=== PATIENT | male | born 1950 | race Caucasian/White ===

== ENCOUNTER 2023-11-10 13:52 | Emergency (ER) | payer MEDICARE, SELFPAY ==
[2023-11-10 14:03] VITALS: BP 122/81
[2023-11-10 14:35] VITALS: BMI 25.7
[2023-11-10 14:53] LABS: % Basophils 0.5 % (0-2); % Eosinophils 0.5 % (0-6); % Immature Granulocytes 0.5 % (0-0.5); % Lymphocytes 22.8 % (20.5-51.1); % Monocytes 7.5 % (1.7-9.3); % Neutrophils 68.2 % (42.2-75.2); Absolute Basophils 0.1 10^3/uL (0-0.2); Absolute Eosinophils 0.1 10^3/uL (0-0.7); Absolute Immature Granulocytes 0.1 10^3/uL (0-0.05); Absolute Lymphocytes 2.5 10^3/uL (1.2-3.4); Absolute Monocytes 0.8 10^3/uL (0.1-0.6); Absolute Neutrophils 7.5 10^3/uL (1.4-6.5); Hematocrit 40.9 % (39.0-52.0); Hemoglobin 14.6 g/dL (13.0-18.0); Mean Corp Hgb Conc. 35.7 g/dL (33.0-37.0); Mean Corpuscular Hgb 29.6 pg (27.0-31.0); Mean Corpuscular Volume 82.8 fL (80.0-94.0); Mean Platelet Volume 9.1 fL (7.4-10.4); Nucleated Red Blood Cells % 0 % (-); Platelet Count 299 10^3/uL (130-400); Red Blood Cell Count 4.94 10^6/uL (4.70-6.10); Red Cell Dist. Width 12.6 % (11.5-14.5)
[2023-11-10 15:05] LABS: ALT (SGPT) 24 U/L (0-50); AST (SGOT) 32 U/L (17-59); Albumin 4.7 g/dl (3.5-5.0); Alkaline Phosphatase 85 U/L (38-126); Blood Urea Nitrogen 14 mg/dl (9-20); Carbon Dioxide 25 mmol/L (22-30); Chloride 107 mmol/L (98-107); Estimated Creatinine Clearance 75 ml/min; Glucose 100 mg/dl (70-99); Potassium 4.5 mmol/L (3.5-5.1); Sodium 141 mmol/L (135-145); Total Bilirubin 0.8 mg/dl (0.2-1.3); Total Protein 7.6 g/dl (6.3-8.2); eGFR > 60.00
[2023-11-10] MEDS: ZOFRAN 8 MG IV (15:38)
[2023-11-10] MEDS: NSS 1000 IV (15:39)
[2023-11-10] MEDS: PEPCID 20 MG IV (15:39)
[2023-11-10 16:00] LABS: Urine Albumin Negative (Neg - Trace); Urine Bilirubin Negative (Negative); Urine Character Clear (Clear); Urine Color Yellow; Urine Glucose Negative (Negative); Urine Ketone 1+ (Negative); Urine Leukocyte Negative (Negative); Urine Nitrite Negative (Negative); Urine Occult Blood Negative (Negative); Urine Urobilinogen Negative (Neg - 1+)
[2023-11-10 16:07] VITALS: BP 130/60
[2023-11-10] MEDS: ATIVAN 1 MG IV (16:28)
[2023-11-10] MEDS: PHENERGAN 51 MG IV (17:19)
[2023-11-10 19:18] VITALS: BP 135/68
--- NOTE | 2023-11-10 19:18 | ED.GENMED ---
History of Present Illness
General
Chief Complaint: Abdominal Symptoms
Source: patient
Exam Limitations: none
Time Seen by Provider: 11/10/23 15:04
Nursing documentation reviewed up to this point in time: agreed with
History of Present Illness
History of Present Illness:
73-year-old male with past medical history of hypertension hyperlipidemia presenting to the emergency department today with concerns of nausea watery diarrhea over the past few days has had a panic attack over the past 2 days. Patient tried Zofran
at home without relief. Denies any chest pain shortness of breath fevers denies any blood in the stool diarrhea has been slowing no significant vomiting over the past few days
Past History
Past History
ED Past Medical History: HTN and Hypercholesterolemia
ED Past Surgical History: Cholecystectomy and Orthopedic
Social History
Tobacco: Non-smoker
Alcohol: None
Personal:
Living: with family
Family History
Family History: Diabetes
Review of Systems
Review of Systems
Allergies reviewed?: Yes
All Other Systems: ROS reviewed and negative except as documented in HPI and ROS
Phy Exam
Physical Exam
Physical Exam:
GENERAL: Alert , in no apparent distress
EYE: pupils equal and reactive
NECK: Supple, no significant adenopathy.
ENT: o/p clr, mmm.
CARDIAC: Regular rate and rhythm .
LUNGS: Clear breath sounds bilaterally, no acute respiratory distress, no wheezes/rales/rhonchi
ABDOMEN: Soft, without focal tenderness, no r/g, no cvat
NEUROLOGICAL: Alert and oriented, no focal neuro deficits
SKIN: Warm and dry, skin intact.
MUSCULOSKELETAL: No edema, well perfused.
PSYCH: Normal and appropriate interaction.
Course
Orders/Labs/Results
Orders:
Orders
11/10/23 14:09
Electrocardiogram (*1) Urgent
Reason for Study: Fatigue / Weakness
EKG- Treatment ONCE
11/10/23 14:44
CMP [Comprehensive Metabolic Panel] Urgent
Complete Blood Count/With Diff Urgent
11/10/23 15:32
0.9% Sodium Chloride 1000 ml [Nss] 1,000 ml IV BOLUS
Famotidine [Pepcid] 20 mg IV NOW STA
Ondansetron Injectable [Zofran] 8 mg IV NOW STA
11/10/23 15:54
Urinalysis Reflex To Culture Urgent
Date Specimen was Collected: 11/10/23
Time Specimen was Collected: 15:52
11/10/23 16:25
Lorazepam [Ativan] 1 mg IV NOW STA
11/10/23 17:09
Promethazine [Phenergan] 25 mg 0.9% Sodium Chloride 50 ml [Nss] 50 ml IV NOW
Abnormal Lab Results
11/10/23 11/10/23
14:44 15:54
WBC 11.0 H 10^3/uL
(4.8-10.8)
Abs Immat Gran (auto) 0.1 H 10^3/uL
(0-0.05)
Absolute Neuts (auto) 7.5 H 10^3/uL
(1.4-6.5)
Absolute Monos (auto) 0.8 H 10^3/uL
(0.1-0.6)
Glucose 100 H mg/dl
(70-99)
Urine Ketones 1+ A
(Negative)
11/10/23 14:44
11/10/23 14:44
Vital Signs
Initial and Last Documented VS:
Initial Vital Signs
Temp Pulse Resp BP Pulse Ox
99.1 F 81 18 122/81 96
11/10/23 14:03 11/10/23 14:03 11/10/23 14:03 11/10/23 14:03 11/10/23 14:03
Last Documented Vital Signs
Temp Pulse Resp BP Pulse Ox
99.1 F 78 18 135/68 99
11/10/23 14:03 11/10/23 19:18 11/10/23 19:18 11/10/23 19:18 11/10/23 19:18
MDM/Problems Addressed
MDM/Problems Addressed:
73-year-old male presenting to the emergency department today with concerns of watery diarrhea and nausea over the past few days also is felt very anxious. Upon arrival vital signs are normal patient with a completely soft benign abdomen very
unlikely be surgical pathology considering no abdominal pain normal vital signs labs with very slight elevated white count otherwise labs unremarkable urinalysis normal. Patient was given multiple medications here and did have significant
improvement of symptoms. Still no ongoing abdominal pain stable for outpatient management. Return precautions given.
*Critical Care Note
Total Time (30-74mins, 75-104mins- exclusive of procedures): Not Applicable
ED Attending Note
-
Portions of this chart may have been created with voice recognition software.� Occasional wrong word or��sound alike� substitutions may have occurred due to the inherent limitations of voice recognition software.
Discharge Plan
Departure
Patient Disposition: Home (Routine Discharge)
Date of Disposition: 11/10/23
Time of Disposition: 19:18
Patient with high blood pressure during this ER visit?: No
Condition: Good
Covid-19: Not Applicable
Discharge Problem:
Diarrhea
Instructions: Diarrhea in teens and adults
Prescriptions:
New
promethazine 25 mg tablet
25 mg PO Q4H PRN (Reason: nausea and vomiting) Qty: 14 0RF
No Action
oxycodone-acetaminophen [Percocet] 1 EACH tablet
1 ea PO Q6HPRN PRN (Reason: PAIN) Qty: 20 0RF
oxycodone [OxyContin] 20 MG tablet extended release 12 hr
20 mg PO Q4HPRN PRN (Reason: neck pain) Qty: 20 0RF
diazepam [Valium] 5 MG tablet
5 mg PO Q8HPRN PRN (Reason: muscle spasm) Qty: 10 0RF
amlodipine [Norvasc] 5 MG tablet
5 mg PO DAILY
aspirin 81 MG tablet,delayed release (DR/EC)
81 mg PO DAILY
ezetimibe-simvastatin [Vytorin 10-10] 10 MG/10 MG tablet
1 tab PO DAILY
KEFLEX
Patient Comments:
unsure of med and dose
diazepam 5 MG tablet
5 mg PO TIDPRN PRN (Reason: muscle spasm) Qty: 10 0RF
sulfamethoxazole-trimethoprim 1 TABLET tablet
1 tab PO BID Qty: 20 0RF
cephalexin [Keflex] 500 MG capsule
500 mg PO TID Qty: 21 0RF
cephalexin 500 MG capsule
500 mg PO BID Qty: 14 0RF
prednisone 10 mg tablet
10 mg PO DAILY Qty: 40 0RF
Referrals:
Severo Mares MD [Family Provider] -
Activity Restrictions/Additional Instructions:
You came to the emergency department today with concerns of diarrhea and nausea over the past few days. Here you had a reassuring assessment normal vital signs labs without emergent findings. You can take the Phenergan 25 mg every 4 hours as
needed for ongoing symptoms. Return to the emergency department for any worsening, new or concerning symptoms.
Interventions
Interventions:
*Risk Screen - Suicide Last Done: 11/10/23 14:37
*General Assessment Last Done: 11/10/23 14:37
*Neglect/Abuse Screening Last Done: 11/10/23 14:37
ED- Fall Risk Assessment Last Done: 11/10/23 19:29
*ED COVID-19 Vaccine History Last Done: 11/10/23 19:29
*Nursing Disposition Last Done: 11/10/23 19:29
DV-Uotufz-Nntwcaviwu Assessment Last Done: 11/10/23 14:37
Discharge Date and Time
Discharge Date/Time: 11/10/23 19:30
Print Language: TURKMEN
== END 2023-11-10 19:30 | disposition home or self-care (01) ==
LOC: EMR 13:52
PROVIDERS: Emergency Medicine; Physician Assistant; EMERGENCY PHYSICIAN Emergency Medicine; FAMILY PHYSICIAN Internal Medicine
DX: R19.7 Diarrhea, unspecified (principal); I10 Essential (primary) hypertension; E78.00 Pure hypercholesterolemia, unspecified
CPT/HCPCS: 99284; 96365; 96375 ×3; 80053; 81003; 85025; 93005

== ENCOUNTER 2025-02-15 17:00 | Emergency (ER) | payer MEDICARE, SELFPAY ==
[2025-02-15 17:11] VITALS: BP 148/101
--- NOTE | 2025-02-15 18:05 | ED.GENMED ---
History of Present Illness
General
Chief Complaint: Breathing Problem
Source: patient and family
Time Seen by Provider: 02/15/25 17:44
History of Present Illness
History of Present Illness:
This patient is a 74-year-old male who states that 6 6 weeks ago he went to [place]. Shortly after he developed COVID, and describes a 4 to 5-week period where he was extremely tired, not as active as usual. He went to the urgent care twice and
his primary care doctor once because of the symptoms. About a week ago he started to notice that his energy was improved and he has started to be more active than he has been able to be in the last 4 to 5 weeks. He states that in the last week
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 With this elevation, he notes mild dyspnea. This resolves after few minutes. He denies associated
diaphoresis, chest pain or pressure, neck pain, headache, new back pain, or other symptoms. Patient is very mindful of his vital signs and states that his resting pulse is typically 70. He is having these episodes of accelerated heart rate with
dyspnea mostly with exertion although he did have 1 episode this week when he was watching television and his heart rate went up to 102 for a few minutes. He denies palpitations, dizziness. He denies leg swelling, hemoptysis, cough, fever, chills.
Patient went to the urgent care today and was told that his EKG was 'abnormal', which prompted his visit here. Patient is asymptomatic at this time.
Past History
Past History
ED Past Medical History: HTN, Hypercholesterolemia, Psychiatric and Other (Rosacea)
ED Past Surgical History: Appendectomy, Cholecystectomy, Orthopedic and Other (Hernia)
Social History
Tobacco: Non-smoker
Alcohol: None
Drug: None
Personal:
Living: with family
Family History
Family History: Diabetes
Phy Exam
Physical Exam
Physical Exam:
GENERAL: Alert , in no apparent distress
EYE: pupils equal and reactive
NECK: Supple, no significant adenopathy.
ENT: o/p clr, mmm.
CARDIAC: Regular rate and rhythm .
LUNGS: Clear breath sounds bilaterally, no acute respiratory distress, no wheezes/rales/rhonchi
ABDOMEN: Soft, without focal tenderness, no r/g, no cvat
NEUROLOGICAL: Alert and oriented, no focal neuro deficits
SKIN: Warm and dry, skin intact.
MUSCULOSKELETAL: No edema, well perfused.
PSYCH: Normal and appropriate interaction.
Scores
Heart Failure Risk
Heart Failure Risk Score: Not Applicable
Course
Orders/Labs/Results
Orders:
Orders
02/15/25 17:01
Electrocardiogram (*1) Urgent
Reason for Study: Shortness of Breath
EKG- Treatment ONCE
02/15/25 17:09
CR Chest - 2 Views Urgent
Comment:
Reason For Exam: SOB
02/15/25 18:11
Complete Blood Count/With Diff Urgent
Comprehensive Metabolic Panel Urgent
D-Dimer Urgent
Prothrombin Time Urgent
Troponin I Urgent
Abnormal Lab Results
02/15/25
18:11
WBC 16.0 H 10^3/uL
(4.8-10.8)
RBC 4.57 L 10^6/uL
(4.70-6.10)
Abs Immat Gran (auto) 0.1 H 10^3/uL
(0-0.05)
Absolute Neuts (auto) 12.0 H 10^3/uL
(1.4-6.5)
Absolute Monos (auto) 1.1 H 10^3/uL
(0.1-0.6)
Immature Gran % 0.8 H %
(0-0.5)
Neutrophils % 75.3 H %
(42.2-75.2)
Lymphocytes % 16.1 L %
(20.5-51.1)
BUN 23 H mg/dl
(9-20)
Glucose 136 H mg/dl
(70-99)
02/15/25 18:11
02/15/25 18:11
Vital Signs
Initial and Last Documented VS:
Initial Vital Signs
Temp Pulse Resp BP Pulse Ox
98.8 F 83 17 148/101 99
02/15/25 17:11 02/15/25 17:11 02/15/25 17:11 02/15/25 17:11 02/15/25 17:11
Last Documented Vital Signs
Temp Pulse Resp BP Pulse Ox
98.0 F 73 18 127/66 94
02/15/25 20:30 02/15/25 20:30 02/15/25 20:30 02/15/25 20:30 02/15/25 20:30
*Pulse Oximetry
SaO2: 99
Oxygen Mode of Delivery: Room air
Patient hypoxic: no
*Critical Care Note
Total Time (30-74mins, 75-104mins- exclusive of procedures): Not Applicable
Update Note
Update Note:
Patient presents to the Emergency Department with ___elevated heart rate with shortness of breath
Number and Complexity of Problems Addressed at the Encounter
� Chronic conditions affecting care:
� Acute Exacerbation and/or Progression of Chronic Illness:
� Differential Diagnosis includes: But not limited to deconditioning, cardiac ischemia, PE, etc. etc.
Amount and/or Complexity of Data to be Reviewed and Analyzed
� I performed an independent evaluation of and my interpretation is:
EKG: Read by me, normal sinus rhythm, normal rate, normal axis, nonspecific T wave inversion inferiorly
CT:
Xrays: Read by me, also read by radiology, elevated right hemidiaphragm otherwise NAD
Laboratory Studies: Mild leukocytosis, may be related to patient's intermittent steroid use, discussed with him importance of follow-up regarding, otherwise labs generally unremarkable
Other:
� Review of other/old records reveals:
� Clinical information was obtained by an independent historian: and daughter who are at bedside
� Prescriptions/Medications Considered but not given:
� Further testing considered but not performed:
Risk of Complications and/or Morbidity or Mortality of Patient Management
� Social determinants of health affecting care:
� Discussion with other providers (PCP, Hospitalists, Consultants, etc):
� Escalation of care including admission/observation vs risk of discharge considered: Patient remains extremely comfortable here, no episodes of tachycardia, dyspnea, or vital sign abnormalities of concern. No chest pain.
Patient given copy of labs and ECG as well as chest x-ray, will be referred for prompt cardiology follow-up. Discussed with patient importance of this follow-up and reasons to return to the ER.
ED Attending Note
-
Portions of this chart may have been created with voice recognition software.� Occasional wrong word or��sound alike� substitutions may have occurred due to the inherent limitations of voice recognition software.
Discharge Plan
Departure
Patient Disposition: Home (Routine Discharge)
Date of Disposition: 02/15/25
Time of Disposition: 20:08
Patient with high blood pressure during this ER visit?: Yes
Condition: Good
Discharge Problem:
Heart palpitations, Dyspnea
Instructions: Shortness of breath, Chest Pain DCA Follow Up, Heart Palpitations
Prescriptions:
No Action
oxycodone-acetaminophen [Percocet] 1 EACH tablet
1 ea PO Q6HPRN PRN (Reason: PAIN) Qty: 20 0RF
oxycodone [OxyContin] 20 MG tablet extended release 12 hr
20 mg PO Q4HPRN PRN (Reason: neck pain) Qty: 20 0RF
diazepam [Valium] 5 MG tablet
5 mg PO Q8HPRN PRN (Reason: muscle spasm) Qty: 10 0RF
amlodipine [Norvasc] 5 MG tablet
5 mg PO DAILY
aspirin 81 MG tablet,delayed release (DR/EC)
81 mg PO DAILY
ezetimibe-simvastatin [Vytorin 10-10] 10 MG/10 MG tablet
1 tab PO DAILY
KEFLEX
Patient Comments:
unsure of med and dose
diazepam 5 MG tablet
5 mg PO TIDPRN PRN (Reason: muscle spasm) Qty: 10 0RF
sulfamethoxazole-trimethoprim 1 TABLET tablet
1 tab PO BID Qty: 20 0RF
cephalexin [Keflex] 500 MG capsule
500 mg PO TID Qty: 21 0RF
cephalexin 500 MG capsule
500 mg PO BID Qty: 14 0RF
prednisone 10 mg tablet
10 mg PO DAILY Qty: 40 0RF
promethazine 25 mg tablet
25 mg PO Q4H PRN (Reason: nausea and vomiting) Qty: 14 0RF
Referrals:
Veronica San MD [Active, Cardiology] - Follow up in 2-3 days
NONE,* [Active, Internal Medicine]
Activity Restrictions/Additional Instructions:
PLEASE BRING ATTACHED RESULTS WITH YOU WHEN YOU SEE THE CENTRAL SUPPLY TECHNICIAN SUPERVISOR THIS WEEK. IF YOU DEVELOP CHEST PAIN OR PRESSURE, PERSISTENT TROUBLE BREATHING, DIZZINESS, FEVER, PERSISTENT PALPITATIONS, VOMITING, OR OTHER WORRISOME SIGNS, PLEASE RETURN TO THE
ER IMMEDIATELY EXCLAMATION
Interventions
Interventions:
*Risk Screen - Suicide Last Done: 02/15/25 17:10
*General Assessment Last Done: 02/15/25 17:10
*Neglect/Abuse Screening Last Done: 02/15/25 17:10
*ED COVID-19 Vaccine History Last Done: 02/15/25 17:10
*ED Influenza Vaccine History Last Done: 02/15/25 17:10
*Nursing Disposition Last Done: 02/15/25 20:30
ED- Cardiac Assessment Last Done: 02/15/25 17:52
Discharge Date and Time
Discharge Date/Time: 02/15/25 20:31
Print Language: BELIZEAN
[2025-02-15 18:13] VITALS: BP 137/83
[2025-02-15 18:19] LABS: Hematocrit 39.6 % (39.0-52.0); Hemoglobin 13.6 g/dL (13.0-18.0); Mean Corp Hgb Conc. 34.3 g/dL (33.0-37.0); Mean Corpuscular Volume 86.7 fL (80.0-94.0); Nucleated Red Blood Cells % 0 % (-); Platelet Count 344 10^3/uL (130-400); Red Cell Dist. Width 12.9 % (11.5-14.5)
[2025-02-15 18:29] LABS: INR 1.01; PT 13.6 Sec (11.4-14.6)
[2025-02-15 18:31] LABS: D-Dimer 0.34 ug/mlFEU (0.00-0.50)
[2025-02-15 18:43] LABS: ALT (SGPT) 37 U/L (0-50); AST (SGOT) 26 U/L (17-59); Albumin 4.4 g/dl (3.5-5.0); Alkaline Phosphatase 69 U/L (38-126); Blood Urea Nitrogen 23 mg/dl (9-20); Calcium 9.5 mg/dl (8.4-10.2); Carbon Dioxide 26 mmol/L (22-30); Chloride 107 mmol/L (98-107); Glucose 136 mg/dl (70-99); Potassium 4.2 mmol/L (3.5-5.1); Sodium 140 mmol/L (135-145); Total Protein 7.0 g/dl (6.3-8.2); Troponin I < 0.012 ng/ml; eGFR > 60.00
[2025-02-15 19:00] VITALS: BP 132/82
[2025-02-15 20:30] VITALS: BP 127/66
== END 2025-02-15 20:31 | disposition home or self-care (01) ==
LOC: EMR 17:00
PROVIDERS: Student in an Organized Health Care Education/Training Program; EMERGENCY PHYSICIAN Emergency Medicine; FAMILY PHYSICIAN Internal Medicine
DX: R00.2 Palpitations (principal); R06.00 Dyspnea, unspecified; I10 Essential (primary) hypertension; E78.00 Pure hypercholesterolemia, unspecified; L71.9 Rosacea, unspecified; Z83.3 Family history of diabetes mellitus; Z90.49 Acquired absence of other specified parts of digestive tract
CPT/HCPCS: 99283; 71046; 80053; 84484; 85025; 85379; 85610; 93005

== ENCOUNTER → 2025-03-05 14:31 | Outpatient (REF) | payer MEDICARE, SELFPAY | LOC: RCS 14:31 | PROVIDERS: ATTENDING PHYSICIAN Internal Medicine Interventional Cardiology; FAMILY PHYSICIAN Internal Medicine | DX: R00.0 Tachycardia, unspecified (principal); R06.02 Shortness of breath | CPT/HCPCS: 93306 ==